=== PATIENT | female | born 1990 | race American Indian/Alaskan Native ===

== ENCOUNTER 2017-10-10 23:24 | Emergency (ER) | payer SELFPAY ==
[2017-10-11 00:32] LABS: Bilirubin,Urine NEG (Negative); Blood,Urine NEG (Negative); Color,Urine Yellow (Yellow); Mucus,Urine FEW /HPF; Protein,Urine <15 mg/dL mg/dL (Negative); Urobilinogen,Urine < 2.0 mg/dL (<2.0)
[2017-10-11 00:53] LABS: Basophils # (Auto) 0.1 K/mm3 (0.0-0.1); Eosinophils # (Auto) 0.2 K/mm3 (0.0-0.4); Eosinophils % (Auto) 1.8 % (0.0-4.3); Hematocrit 38.3 % (30.3-42.9); Hemoglobin 12.1 gm/dl (10.1-14.3); Lymphocytes # (Auto) 2.2 K/mm3 (1.2-5.4); Lymphocytes % (Auto) 26.1 % (13.4-35.0); Mean Corpuscular HGB Conc 32 % (30-34); Mean Corpuscular Volume 77 fl (79-97); Monocytes # (Auto) 0.6 K/mm3 (0.0-0.8); Monocytes % (Auto) 7.3 % (0.0-7.3); Platelet Count 582 K/mm3 (140-440); Red Blood Count 5.01 M/mm3 (3.65-5.03); Red Cell Distribution Width 15.2 % (13.2-15.2)
[2017-10-11 01:05] LABS: Mean Corpuscular Hemoglobin 24 pg (28-32)
[2017-10-11 01:07] LABS: Alanine Aminotransferase 41 units/L (7-56); Albumin 4.1 g/dL (3.9-5); BUN/Creatinine Ratio 8; Blood Urea Nitrogen 5 mg/dL (7-17); Hemolysis Index 2
[2017-10-11 02:15] VITALS: BP 113/70
[2017-10-11] MEDS ORDERED: NACL 0.9% 1000 ML 2,000 ML IV ONE (02:26)
[2017-10-11] MEDS ORDERED: ZOFRAN IV ONE (02:27)
[2017-10-11] MEDS ORDERED: NORCO 5/325 PO ONE (03:02)
[2017-10-11] MEDS ORDERED: ZOFRAN ODT PO ONE (03:02)
--- NOTE | 2017-10-11 03:09 | Emergency Department Report ---
HPI - General Chief Complaint: Abdominal Pain Time Seen by Provider: 10/11/17 02:58 - HPI HPI: The patient is a 26-year-old female with a history of Crohn's disease, presents for evaluation of abdominal pain. The patient reports flat of her Crohn's for the past one month, worsened 2 days ago. She states that her pain is been severe for the past 2 days, crampy in quality, exacerbated with eating. She also reports associated nausea and nonbilious, nonbloody emesis. The patient denies fever, chills, night sweats, diarrhea, blood in the stool, dark tarry stool, dysuria, hematuria, flank pain, genital discharge, inability to pass flatus. ED Past Medical Hx - Past Medical History Additional medical history: Sickle Cell Trait, Crohn's Ds - Surgical History Additional Surgical History: Intestinal Surgery - Social History Smoking Status: Never Smoker Substance Use Type: None - Medications Home Medications: Home Medications Medication Instructions Recorded Confirmed Last Taken Type Ondansetron [Zofran TAB] 4 mg PO Q8HR PRN #15 tablet 10/11/17 Unknown Rx predniSONE [Deltasone] 20 mg PO QDAY #5 tab 10/11/17 Unknown Rx traMADol [Ultram 50 MG tab] 50 mg PO Q6HR PRN #20 tablet 10/11/17 Unknown Rx ED Review of Systems ROS: Stated complaint: ABD PAIN Other details as noted in HPI Constitutional: denies: fever ENT: denies: throat or neck pain Respiratory: denies: cough, shortness of breath Cardiovascular: denies: chest pain Endocrine: denies unexplained weight loss or gain Gastrointestinal: reports abdominal pain, nausea Genitourinary: denies: dysuria Musculoskeletal: denies: leg swelling Skin: denies: rash Neurological: denies: headache Hematological/Lymphatic: denies: easy bleeding or easy bruising Psych: denies sadness or hopelessness Physical Exam - Physical Exam Vital Signs: Vital Signs 10/11/17 10/11/17 00:33 02:14 Temperature 99.2 F 98.3 F Pulse Rate 106 H 95 H Respiratory 20 15 Rate Blood Pressure 115/71 113/70 [Left] O2 Sat by Pulse 100 100 Oximetry Physical Exam: General: well-nourished, well-developed, no acute distress Head: Normocephalic, atraumatic Eyes: normal sclera ENT: Mucous membranes are pink and moist Neck: trachea midline, neck supple, No neck stiffness, no cervical adenopathy Respiratory: Breath sounds equal bilaterally, no wheezing, rales, or rhonchi Cardio: S1 and S2 present, no murmurs, rubs, gallops, capillary refill is brisk Abdomen: Normoactive bowel sounds, soft abdomen, periumbilical tenderness to palpation present, no rigidity, no guarding or rebound tenderness Chest WALL/Back: No tenderness to palpation of the chest wall, no CVA tenderness with percussion Musc: No pitting edema Skin: No rash Neuro: no facial drooping, normal speech Psych: Normal affect ED Course Vital Signs 10/11/17 10/11/17 00:33 02:14 Temperature 99.2 F 98.3 F Pulse Rate 106 H 95 H Respiratory 20 15 Rate Blood Pressure 115/71 113/70 [Left] O2 Sat by Pulse 100 100 Oximetry ED Medical Decision Making - Lab Data Result diagrams: 10/11/17 00:20 10/11/17 00:20 - Medical Decision Making General: well-nourished, well-developed, no acute distress Head: Normocephalic, atraumatic Eyes: normal sclera ENT: Mucous membranes are pink and moist Neck: trachea midline, neck supple, No neck stiffness, no cervical adenopathy Respiratory: Breath sounds equal bilaterally, no wheezing, rales, or rhonchi Cardio: S1 and S2 present, no murmurs, rubs, gallops, capillary refill is brisk Abdomen: Normoactive bowel sounds, soft abdomen, epigastric tenderness palpation present, no rigidity, no guarding or rebound tenderness Chest WALL/Back: No tenderness to palpation of the chest wall, no CVA tenderness with percussion Musc: No pitting edema Skin: No rash Neuro: no facial drooping, normal speech Psych: Normal affect Critical care attestation.: If time is entered above; I have spent that time in minutes in the direct care of this critically ill patient, excluding procedure time. ED Disposition Clinical Impression: Abdominal pain, acute, epigastric, Acute abdominal pain in left upper quadrant Disposition: -01 TO HOME OR SELFCARE Is pt being admited?: No Does the pt Need Aspirin: No Condition: Stable Instructions: Abdominal Pain (ED), Irritable Bowel Syndrome (ED) Referrals: PRIMARY CARE, [Primary Care Provider] - 3-5 Days Time of Disposition: 03:03
== END 2017-10-11 03:43 | disposition home or self-care (01) ==
LOC: ED 23:24
DX: R10.13 Epigastric pain (principal); R10.12 Left upper quadrant pain; K50.90 Crohn's disease, unspecified, without complications; D57.00 Hb-SS disease with crisis, unspecified
CPT/HCPCS: 36415; 80053; 81001; 83690; 84703; 85025; 99283; Q0162

== ENCOUNTER 2017-10-23 02:57 | Emergency (ER) | payer MEDICAID, OTHER ==
[2017-10-23 03:03] VITALS: BP 122/79
[2017-10-23 04:51] LABS: Basophils # (Auto) 0.1 K/mm3 (0.0-0.1); Basophils % (Auto) 0.9 % (0.0-1.8); Eosinophils # (Auto) 0.2 K/mm3 (0.0-0.4); Eosinophils % (Auto) 2.1 % (0.0-4.3); Hematocrit 41.5 % (30.3-42.9); Hemoglobin 13.4 gm/dl (10.1-14.3); Lymphocytes % (Auto) 40.9 % (13.4-35.0); Mean Corpuscular HGB Conc 32 % (30-34); Mean Corpuscular Volume 75 fl (79-97); Monocytes # (Auto) 0.9 K/mm3 (0.0-0.8); Monocytes % (Auto) 9.4 % (0.0-7.3); Platelet Count 655 K/mm3 (140-440); Red Cell Distribution Width 14.9 % (13.2-15.2)
[2017-10-23 04:57] LABS: Mean Corpuscular Hemoglobin 24 pg (28-32)
[2017-10-23 05:08] LABS: Alanine Aminotransferase 40 units/L (7-56); Albumin 4.3 g/dL (3.9-5); BUN/Creatinine Ratio 6; Blood Urea Nitrogen 4 mg/dL (7-17); Calcium 9.6 mg/dL (8.4-10.2); Hemolysis Index 5
[2017-10-23 05:35] LABS: Bilirubin,Urine NEG (Negative); Blood,Urine NEG (Negative); Color,Urine Yellow (Yellow); Mucus,Urine FEW /HPF; Protein,Urine <15 mg/dL mg/dL (Negative); Urobilinogen,Urine < 2.0 mg/dL (<2.0)
== END 2017-10-23 04:30 | disposition left against medical advice (07) ==
LOC: ED 02:57
DX: R10.9 Unspecified abdominal pain (principal); Z53.21 Procedure and treatment not carried out due to patient leaving prior to being seen by health care provider
CPT/HCPCS: 36415; 80053; 81001; 85025

== ENCOUNTER 2017-10-24 17:41 | Emergency (ER) | payer MEDICAID ==
[2017-10-24] MEDS ORDERED: NACL 0.9% 1000 ML 1,000 ML IV ONE (20:56)
[2017-10-24 21:24] LABS: Basophils % (Auto) 0.4 % (0.0-1.8); Eosinophils # (Auto) 0.2 K/mm3 (0.0-0.4); Eosinophils % (Auto) 2.5 % (0.0-4.3); Hematocrit 38.2 % (30.3-42.9); Hemoglobin 12.5 gm/dl (10.1-14.3); Lymphocytes # (Auto) 2.8 K/mm3 (1.2-5.4); Lymphocytes % (Auto) 32.9 % (13.4-35.0); Mean Corpuscular HGB Conc 33 % (30-34); Mean Corpuscular Hemoglobin 24 pg (28-32); Mean Corpuscular Volume 75 fl (79-97); Monocytes # (Auto) 0.8 K/mm3 (0.0-0.8); Monocytes % (Auto) 9.5 % (0.0-7.3); Platelet Count 545 K/mm3 (140-440); Red Cell Distribution Width 14.8 % (13.2-15.2)
[2017-10-24 21:53] LABS: Bilirubin,Urine NEG (Negative); Blood,Urine NEG (Negative); Color,Urine Yellow (Yellow); Mucus,Urine 3+ /HPF
[2017-10-24 21:55] LABS: Alanine Aminotransferase 29 units/L (7-56); Albumin 3.9 g/dL (3.9-5); BUN/Creatinine Ratio 10; Blood Urea Nitrogen 6 mg/dL (7-17); Calcium 9.4 mg/dL (8.4-10.2); Hemolysis Index 3
[2017-10-24] MEDS ORDERED: TORADOL IV ONE (22:04)
[2017-10-24] MEDS ORDERED: ZOFRAN IV ONE (22:04)
--- NOTE | 2017-10-24 22:09 | Emergency Department Report ---
ED Abdominal Pain HPI - General Chief Complaint: Abdominal Pain Stated Complaint: CROHNS FLAIR Time Seen by Provider: 10/24/17 21:28 Source: patient Mode of arrival: Ambulatory Limitations: No Limitations - History of Present Illness Initial Comments: Ms. Barajas is 26 yo female who was diagnosed with Crohn's disease age 21. She has been terminated from her GI practice of Dr. Carias. Consequently, she has not had any medications to manage Crohn's disease. Her PCP Ms. Joycelyn Riley at [facility] has referred to her to a new strip catcher at [place]. She has had one month of symptoms: abdominal bloating, constipation, abdominal pain and nausea. She recently finished steroids which were given during a recent ED visit. MD Complaint: abdominal pain -: Gradual, month(s) (1) Location: diffuse Radiation: none Migration to: no migration Severity: moderate Quality: cramping Consistency: intermittent Improves With: nothing Worsens With: nothing Associated Symptoms: nausea, constipation - Related Data Previous Rx's Medication Instructions Recorded Last Taken Type Ondansetron [Zofran TAB] 4 mg PO Q8HR PRN #15 tablet 10/11/17 Unknown Rx predniSONE [Deltasone] 20 mg PO QDAY #5 tab 10/11/17 Unknown Rx traMADol [Ultram 50 MG tab] 50 mg PO Q6HR PRN #20 tablet 10/11/17 Unknown Rx Polyethylene Glycol 3350 [Miralax 17 gm PO QDAY 7 Days #7 packet 10/24/17 Unknown Rx 3350] Promethazine [Phenergan TAB] 25 mg PO Q6HR PRN #10 tab 10/24/17 Unknown Rx Allergies Allergy/AdvReac Type Severity Reaction Status Date / Time No Known Allergies Allergy Unverified 10/11/17 00:06 ED Review of Systems ROS: Stated complaint: CROHNS FLAIR Other details as noted in HPI Comment: All other systems reviewed and negative Constitutional: denies: fever, malaise Respiratory: denies: cough Cardiovascular: denies: chest pain Gastrointestinal: abdominal pain, nausea, constipation ED Past Medical Hx - Past Medical History Previous Medical History?: Yes Additional medical history: Sickle Cell Trait, Crohn's - Surgical History Past Surgical History?: Yes Additional Surgical History: Intestinal Surgery, 2016 - Social History Smoking Status: Never Smoker Substance Use Type: None - Medications Home Medications: Home Medications Medication Instructions Recorded Confirmed Last Taken Type Ondansetron [Zofran TAB] 4 mg PO Q8HR PRN #15 tablet 10/11/17 Unknown Rx predniSONE [Deltasone] 20 mg PO QDAY #5 tab 10/11/17 Unknown Rx traMADol [Ultram 50 MG tab] 50 mg PO Q6HR PRN #20 tablet 10/11/17 Unknown Rx Polyethylene Glycol 3350 [Miralax 17 gm PO QDAY 7 Days #7 packet 10/24/17 Unknown Rx 3350] Promethazine [Phenergan TAB] 25 mg PO Q6HR PRN #10 tab 10/24/17 Unknown Rx ED Physical Exam - General Limitations: No Limitations General appearance: alert, in no apparent distress - Head Head exam: Present: atraumatic, normocephalic - Eye Eye exam: Present: normal appearance - ENT ENT exam: Present: mucous membranes moist - Neck Neck exam: Present: normal inspection - Respiratory Respiratory exam: Present: normal lung sounds bilaterally. Absent: respiratory distress, wheezes, rales, rhonchi - Cardiovascular Cardiovascular Exam: Present: regular rate, normal rhythm, normal heart sounds. Absent: systolic murmur, diastolic murmur, rubs, gallop - GI/Abdominal GI/Abdominal exam: Present: soft, normal bowel sounds. Absent: distended, tenderness, guarding, rebound - Extremities Exam Extremities exam: Present: normal inspection - Back Exam Back exam: Present: normal inspection - Neurological Exam Neurological exam: Present: alert, oriented X3 - Psychiatric Psychiatric exam: Present: normal affect, normal mood - Skin Skin exam: Present: warm, dry, intact, normal color. Absent: rash ED Course Vital Signs 10/24/17 10/24/17 17:48 21:41 Temperature 98.1 F 98.2 F Pulse Rate 100 H 100 H Respiratory 16 18 Rate Blood Pressure 135/77 Blood Pressure 122/63 [Left] O2 Sat by Pulse 100 99 Oximetry ED Medical Decision Making - Lab Data Result diagrams: 10/24/17 21:06 10/24/17 21:06 - Medical Decision Making Ms. Barajas is 26 yo female with hx of Crohn's disease. She appears well today. Normal weight count without fever. No active vomiting in ED. Given IM toradol and po Zofran. Prescribed Zofran and Miralax. referred to outside clinic and her PCP at [facility] Critical care attestation.: If time is entered above; I have spent that time in minutes in the direct care of this critically ill patient, excluding procedure time. ED Disposition Clinical Impression: Crohn's disease, Acute abdominal pain Disposition: TO HOME OR SELFCARE Is pt being admited?: No Does the pt Need Aspirin: No Condition: Stable Instructions: Abdominal Pain (ED) Prescriptions: Polyethylene Glycol 3350 [Miralax 3350] 17 gm PO QDAY 7 Days #7 packet Promethazine [Phenergan TAB] 25 mg PO Q6HR PRN #10 tab PRN Reason: Nausea Referrals: PRIMARY CARE, [Primary Care Provider] - 3-5 Days Time of Disposition: 22:43
[2017-10-24] MEDS ORDERED: TORADOL IM ONE (22:36)
[2017-10-24] MEDS ORDERED: ZOFRAN ODT PO ONE (22:36)
[2017-10-24 22:56] LABS: HCG Qualitative,Urine Negative (Negative)
[2017-10-24 23:44] VITALS: BP 114/77
== END 2017-10-24 23:45 | disposition home or self-care (01) ==
LOC: ED 17:41
DX: K50.90 Crohn's disease, unspecified, without complications (principal); D57.3 Sickle-cell trait
CPT/HCPCS: 36415; 80053; 81001; 81025; 85025; 96372; 99283; J1885; J7030; J2405; Q0162